=== PATIENT | male | born 1960 | race Caucasian/White ===

== ENCOUNTER 2017-10-21 13:21 | Emergency (ER) | payer OTHER ==
[~2017-10-21] VITALS: Ht 177.8 cm; Wt 100.0 kg
[2017-10-21] MEDS ORDERED: SODIUM CHLORIDE 0.9% 1,000 ML IV ONE ×2 (15:30→16:30)
[2017-10-21 16:02] LABS: BASOPHILS % 0.6 % (0.0-2.0); EOSINOPHILS % 0.1 % (0.0-5.0); HEMATOCRIT. 37.1 % (42.0-52.0); HEMOGLOBIN. 12.5 g/dL (14.0-18.0); LYMPHOCYTES % 11.8 % (20.0-50.0); MEAN CORPUSCULAR HEMOGLOBIN 31.1 pg (28.0-32.0); MEAN PLATELET VOLUME 8.8 fl (7.4-10.4); MONOCYTES % 4.1 % (2.0-8.0); NEUTROPHILS % 83.4 % (40.0-76.0); PLATELET 222 x1000/uL (130-400); RED BLOOD CELL COUNT 4.03 mill/uL (4.7-6.1); RED CELL DISTRIBUTION WIDTH 13.6 % (11.6-14.6)
[2017-10-21 16:07] LABS: INR 1.1; PARTIAL THROMBOPLASTIN TIME 24.5 sec (23.4-31.0); PROTHROMBIN TIME 10.9 sec (9.4-11.6)
[2017-10-21 16:10] LABS: CHLORIDE 109 mEq/L (98-107)
[2017-10-21 19:15] VITALS: BP 138/70
== END 2017-10-21 19:35 | disposition home or self-care (01) ==
LOC: ER 15:04
DX: I95.9 Hypotension, unspecified (principal); R42 Dizziness and giddiness; R00.1 Bradycardia, unspecified; F17.210 Nicotine dependence, cigarettes, uncomplicated; Z98.84 Bariatric surgery status
CPT/HCPCS: 36415; 71045; 80053; 83690; 84484; 85025; 85610; 85730; 93005; 96360; 96361; 99285; J7030; Z7610